=== PATIENT | male | born 1960 | race Caucasian/White ===

== ENCOUNTER 2017-03-25 15:48 | Emergency (ER) | payer BC ==
[~2017-03-25] VITALS: Ht 193 cm; Wt 97.1 kg
[~2017-03-25 15:48] MED LIST: ALTOPREV20 MG PO; ALTOPREV40 MG PO; ASPIR-LOW81 MG PO; ASPIRIN325 MG PO; COMBIVENT RESPIM4 GM IH; CRESTOR20 MG PO; DAILY VITE1 EAC1 PO; DILAUDID2 MG PO; FLUOXETINE HCL60 MG PO; LISINOPRIL10 MG PO; LISINOPRIL2.5 MG PO; LISINOPRIL5 MG PO; LITE COAT ASPI325 M1 PO; METOPROLOL SUCC25 MG PO; METOPROLOL SUCC50 MG PO; METOPROLOL TART25 MG PO; MILLIPRED DP5 MG PO; MOTRIN IB200 MG PO; NITROSTAT0.4 MG SL; NOHOMEMEDS; PANTOPRAZOLE SO40 MG PO; PERCOCET 5/31 TABLET PO; PROTONIX40 MG PO; STOOL SOFTENER100 MG PO; TOPROL XL50 MG PO; TYLENOL EXTRA500 MG PO; ULTRAM50 MG PO; ZESTRIL10 MG PO
[2017-03-25 18:07] LABS: EOSINOPHIL (%) 0 % (0-5); HEMATOCRIT 38.6 % (38.0-50.0); IMMATURE GRANULOCYTE (%) 0.3 % (0.0-0.7); INSTRUMENT ABS NEUTROPHIL CT 8.4 K/uL; LYMPHOCYTE COUNT 0.7 K/uL (1.0-2.8); MCH 30.3 PG (29.0-34.0); MCHC 33.9 G/DL (30.0-36.0); MCV 89.4 FL (86-99); MEAN PLAT.VOLUME 9.8 uM^3 (9.0-12.4); MONOCYTE (%) 3.3 % (3-12); MONOCYTE COUNT 0.3 K/uL (0-0.8); NEUTROPHIL COUNT 8.4 K/uL (1.8-6.4); PLATELET COUNT 285 K/uL (156-360); RBC DIS.WIDTH-CV 12.7 % (11.8-14.6); RBC DIS.WIDTH-SD 41.7 % (39-53); RED BLOOD COUNT 4.32 M/uL (4.00-5.50); WHITE BLOOD COUNT 9.5 K/uL (4.1-10.2)
[2017-03-25 18:23] LABS: CHLORIDE 105 mEq/L (99-109); POTASSIUM 4.1 mEq/L (3.7-5.4)
[2017-03-25 18:24] LABS: SODIUM 136 mEq/L (136-147)
[2017-03-25 18:25] LABS: GLUCOSE 117 mg/dL (70-99)
[2017-03-25 18:27] LABS: ANION GAP 8 MEQ/L (2-14)
[2017-03-25 18:29] LABS: GFR ESTIMATE (CALCULATED) > 59 mL/min/; TROP-I INTERPRETATION NEGATIVE; TROPONIN-I < 0.01 ng/mL (0.0-0.30)
[2017-03-25 18:30] LABS: UREA NITROGEN (BUN) 16 mg/dL (9-23)
[2017-03-25 18:32] LABS: CREATINE KINASE 39 IU/L (1-294)
[2017-03-25 21:56] VITALS: BP 144/86
== END 2017-03-25 21:58 | disposition left against medical advice (07) ==
LOC: EME → EDBD 15:48 → EME 21:58
PROVIDERS: Emergency Medicine
DX: R07.9 Chest pain, unspecified (principal); J18.9 Pneumonia, unspecified organism; I10 Essential (primary) hypertension; Z95.1 Presence of aortocoronary bypass graft; Z87.891 Personal history of nicotine dependence; Z88.6 Allergy status to analgesic agent
CPT/HCPCS: 70450; 71010; 80048; 82550; 84484; 85025; 93005; 99281; 99285; J1200; J2405; J2765; J3010; J7030

== ENCOUNTER 2017-07-22 13:45 | Observation (INO) | payer BC ==
[~2017-07-22] VITALS: Ht 193 cm; Wt 96.1 kg
[~2017-07-22 13:45] MED LIST changes: -ZESTRIL10 MG PO; +ZESTRIL5 MG PO
[2017-07-22 14:55] LABS: EOSINOPHIL (%) 1.1 % (0-5); EOSINOPHIL COUNT 0.1 K/uL (0-0.3); HEMATOCRIT 38.4 % (38.0-50.0); INSTRUMENT ABS NEUTROPHIL CT 2.6 K/uL; LYMPHOCYTE COUNT 1.6 K/uL (1.0-2.8); MCH 30.1 PG (29.0-34.0); MCHC 34.4 G/DL (30.0-36.0); MCV 87.5 FL (86-99); MEAN PLAT.VOLUME 10.7 uM^3 (9.0-12.4); MONOCYTE (%) 9.6 % (3-12); MONOCYTE COUNT 0.5 K/uL (0-0.8); NEUTROPHIL (%) 54.6 % (45-76); NEUTROPHIL COUNT 2.6 K/uL (1.8-6.4); PLATELET COUNT 202 K/uL (156-360); RBC DIS.WIDTH-CV 12.3 % (11.8-14.6); RBC DIS.WIDTH-SD 39.1 % (39-53); RED BLOOD COUNT 4.39 M/uL (4.00-5.50); WHITE BLOOD COUNT 4.7 K/uL (4.1-10.2)
[2017-07-22 15:13] LABS: CHLORIDE 106 mEq/L (99-109); POTASSIUM 3.5 mEq/L (3.7-5.4); SODIUM 138 mEq/L (136-147)
[2017-07-22 15:15] LABS: GLUCOSE 89 mg/dL (70-99)
[2017-07-22 15:16] LABS: ANION GAP 10 MEQ/L (2-14)
[2017-07-22 15:17] LABS: TOTAL BILIRUBIN 0.6 mg/dL (0.0-1.0)
[2017-07-22 15:18] LABS: ALKALINE PHOSPHATASE 89 IU/L (3-129)
[2017-07-22 15:19] LABS: GFR ESTIMATE (CALCULATED) > 59 mL/min/
[2017-07-22 15:20] LABS: UREA NITROGEN (BUN) 18 mg/dL (9-23)
[2017-07-22 15:23] LABS: TROP-I INTERPRETATION NEGATIVE; TROPONIN-I < 0.01 ng/mL (0.0-0.30)
[2017-07-22] MEDS ORDERED: CYMBALTA60 MG PO (16:53)
[2017-07-22 19:27] VITALS: BP 163/93
[2017-07-22 21:21] LABS: TROP-I INTERPRETATION NEGATIVE; TROPONIN-I < 0.01 ng/mL (0.0-0.30)
[2017-07-22 23:14] VITALS: BP 116/59
[2017-07-23 02:49] LABS: TROP-I INTERPRETATION NEGATIVE; TROPONIN-I < 0.01 ng/mL (0.0-0.30)
[2017-07-23 04:35] VITALS: BP 97/52
[2017-07-23 07:53] VITALS: BP 112/65
[2017-07-23 11:55] VITALS: BP 129/58
[2017-07-23] MEDS ORDERED: POLYETHYLENE GL17 GM PO (12:25)
[2017-07-23] MEDS ORDERED: MAG-AL PLUS SUS30 ML PO (12:26)
[2017-07-23] MEDS ORDERED: PANTOPRAZOLE SO40 MG PO (12:26)
== END 2017-07-23 13:07 | disposition home or self-care (01) ==
LOC: EME 13:45 → EDOF 15:48 → 5WEST 15:48 → ENRESERV 15:50 → 5WEST 19:16
PROVIDERS: Emergency Medicine; Physician Assistant
DX: R07.9 Chest pain, unspecified (principal); I10 Essential (primary) hypertension; K59.00 Constipation, unspecified; E78.5 Hyperlipidemia, unspecified; M06.9 Rheumatoid arthritis, unspecified; I25.10 Atherosclerotic heart disease of native coronary artery without angina pectoris; Z95.1 Presence of aortocoronary bypass graft; I25.2 Old myocardial infarction; E87.6 Hypokalemia; G43.909 Migraine, unspecified, not intractable, without status migrainosus; K21.9 Gastro-esophageal reflux disease without esophagitis; K22.70 Barrett's esophagus without dysplasia; Z91.19 Patient's noncompliance with other medical treatment and regimen; Z87.891 Personal history of nicotine dependence; Z79.82 Long term (current) use of aspirin; Z88.5 Allergy status to narcotic agent; Z88.6 Allergy status to analgesic agent; Z88.8 Allergy status to other drugs, medicaments and biological substances
CPT/HCPCS: 71020; 80053; 83880; 84484; 85025; 85379; 93005; 99281; 99285; G0378; J0360; J1200; J1644; J2270; J2405; J2765; J7030

== ENCOUNTER 2018-05-12 13:55 | Observation (INO) | payer BC ==
[~2018-05-12] VITALS: Ht 193 cm; Wt 97.7 kg
[~2018-05-12 13:55] MED LIST changes: -ALTOPREV40 MG PO; +CYMBALTA60 MG PO; +LOVASTATIN40 MG PO; +MAG-AL PLUS SUS30 ML PO; +POLYETHYLENE GL17 GM PO; +RANEXA500 MG PO
[2018-05-12 14:21] LABS: HEMATOCRIT 41.9 % (38.0-50.0); HEMOGLOBIN 14.6 G/DL (12.5-16.6); MCH 30.8 PG (29.0-34.0); MCHC 34.8 G/DL (30.0-36.0); MCV 88.4 FL (86-99); PLATELET COUNT 261 K/uL (156-360); RBC DIS.WIDTH-CV 12.9 % (11.8-14.6); RBC DIS.WIDTH-SD 41.5 % (39-53); RED BLOOD COUNT 4.74 M/uL (4.00-5.50); WHITE BLOOD COUNT 7.5 K/uL (4.1-10.2)
[2018-05-12 14:33] LABS: CHLORIDE 105 mEq/L (99-109); POTASSIUM 4.4 mEq/L (3.7-5.4); SODIUM 140 mEq/L (136-147)
[2018-05-12 14:35] LABS: GLUCOSE 94 mg/dL (70-99)
[2018-05-12 14:39] LABS: GFR ESTIMATE (CALCULATED) > 59 mL/min/ (58.99-99999)
[2018-05-12 14:40] LABS: UREA NITROGEN (BUN) 17 mg/dL (9-23)
[2018-05-12 14:41] LABS: TROP-I INTERPRETATION NEGATIVE; TROPONIN-I < 0.01 ng/mL (0.0-0.30)
[2018-05-12] MEDS ORDERED: LISINOPRIL5 MG PO (17:53)
[2018-05-12 19:18] LABS: ALBUMIN 4.4 g/dL (3.2-4.8)
[2018-05-12 19:21] LABS: TOTAL PROTEIN 8.4 g/dL (6.4-8.3)
[2018-05-12 19:23] LABS: TOTAL BILIRUBIN 0.5 mg/dL (0.0-1.0)
[2018-05-12 19:24] LABS: ALKALINE PHOSPHATASE 100 IU/L (3-129)
[2018-05-12 19:26] LABS: AST (GOT) 23 IU/L (2-34); DIRECT BILIRUBIN 0.2 mg/dL (0.0-0.3)
[2018-05-12 19:27] LABS: ALT (GPT) 24 IU/L (3-49)
[2018-05-12 19:28] LABS: LIPASE 34 U/L (1.0-51.0)
[2018-05-12 20:31] VITALS: BP 160/94
[2018-05-12 20:50] LABS: TROP-I INTERPRETATION NEGATIVE; TROPONIN-I < 0.01 ng/mL (0.0-0.30)
[2018-05-13 00:24] VITALS: BP 100/58
[2018-05-13 02:05] LABS: HEMATOCRIT 37.2 % (38.0-50.0); HEMOGLOBIN 12.9 G/DL (12.5-16.6); MCHC 34.7 G/DL (30.0-36.0); MCV 89.4 FL (86-99); PLATELET COUNT 227 K/uL (156-360); RBC DIS.WIDTH-CV 13.2 % (11.8-14.6); RBC DIS.WIDTH-SD 42.5 % (39-53); RED BLOOD COUNT 4.16 M/uL (4.00-5.50); WHITE BLOOD COUNT 6.1 K/uL (4.1-10.2)
[2018-05-13 02:18] LABS: CHLORIDE 107 mEq/L (99-109); POTASSIUM 3.6 mEq/L (3.7-5.4); SODIUM 141 mEq/L (136-147)
[2018-05-13 02:20] LABS: GLUCOSE 125 mg/dL (70-99)
[2018-05-13 02:24] LABS: CREATININE 1.1 mg/dL (0.6-1.3); GFR ESTIMATE (CALCULATED) > 59 mL/min/ (58.99-99999)
[2018-05-13 02:25] LABS: UREA NITROGEN (BUN) 26 mg/dL (9-23)
[2018-05-13 02:28] LABS: TROP-I INTERPRETATION NEGATIVE; TROPONIN-I < 0.01 ng/mL (0.0-0.30)
[2018-05-13 03:09] VITALS: BP 135/73
[2018-05-13 04:36] VITALS: BP 95/57
[2018-05-13 07:50] VITALS: BP 101/64
[2018-05-13] MEDS ORDERED: METOPROLOL SUCC25 MG PO (11:14)
[2018-05-13] MEDS ORDERED: LISINOPRIL10 MG PO (11:15)
[2018-05-13 11:26] VITALS: BP 159/83
== END 2018-05-13 12:16 | disposition home or self-care (01) ==
LOC: EME 13:55 → EDOF 18:24 → 4SOUTH 18:24 → EDOF 18:24 → 4SOUTH 19:53
PROVIDERS: Hospitalist; Physician Assistant
DX: R07.89 Other chest pain (principal); I95.9 Hypotension, unspecified; R00.1 Bradycardia, unspecified; E86.0 Dehydration; R42 Dizziness and giddiness; I25.10 Atherosclerotic heart disease of native coronary artery without angina pectoris; I10 Essential (primary) hypertension; E78.5 Hyperlipidemia, unspecified; Z91.19 Patient's noncompliance with other medical treatment and regimen; Z87.891 Personal history of nicotine dependence; M06.9 Rheumatoid arthritis, unspecified; Z86.19 Personal history of other infectious and parasitic diseases; E87.6 Hypokalemia; K22.70 Barrett's esophagus without dysplasia; K21.9 Gastro-esophageal reflux disease without esophagitis; Z95.1 Presence of aortocoronary bypass graft; G89.4 Chronic pain syndrome; G43.809 Other migraine, not intractable, without status migrainosus; I25.2 Old myocardial infarction; R79.1 Abnormal coagulation profile; J43.9 Emphysema, unspecified; Z88.5 Allergy status to narcotic agent; Z82.49 Family history of ischemic heart disease and other diseases of the circulatory system; Z80.1 Family history of malignant neoplasm of trachea, bronchus and lung
CPT/HCPCS: 71046; 71275; 80048; 80076; 83690; 84484; 85027; 85379; 93005; 99281; 99285; G0378; J1200; J2270; J2405; J7030